=== PATIENT | female | born 1980 | race Two or more races ===

== ENCOUNTER → 2019-12-17 | Outpatient (CLI) | payer OTHER | END | disposition home or self-care (01) | LOC: PRENATAL 11:15 | DX: O26.21 Pregnancy care for patient with recurrent pregnancy loss, first trimester (principal); O36.80X1 Pregnancy with inconclusive fetal viability, fetus 1; O09.91 Supervision of high risk pregnancy, unspecified, first trimester; O09.811 Supervision of pregnancy resulting from assisted reproductive technology, first trimester; O09.521 Supervision of elderly multigravida, first trimester ==

== ENCOUNTER → 2020-02-07 | Outpatient (CLI) | payer OTHER | END | disposition home or self-care (01) | LOC: PRENATAL 08:30 | DX: O26.842 Uterine size-date discrepancy, second trimester (principal); O09.522 Supervision of elderly multigravida, second trimester; O09.812 Supervision of pregnancy resulting from assisted reproductive technology, second trimester; O09.512 Supervision of elderly primigravida, second trimester; O09.92 Supervision of high risk pregnancy, unspecified, second trimester; O26.22 Pregnancy care for patient with recurrent pregnancy loss, second trimester; Z36.89 Encounter for other specified antenatal screening ==

== ENCOUNTER → 2020-03-06 | Outpatient (CLI) | payer OTHER | END | disposition home or self-care (01) | LOC: PRENATAL 09:00 | PROVIDERS: ATTEND Obstetrics & Gynecology Maternal & Fetal Medicine | DX: O26.22 Pregnancy care for patient with recurrent pregnancy loss, second trimester (principal); O09.522 Supervision of elderly multigravida, second trimester; O09.812 Supervision of pregnancy resulting from assisted reproductive technology, second trimester; Z36.89 Encounter for other specified antenatal screening ==

== ENCOUNTER 2022-09-13 23:29 | Emergency (ER) | payer OTHER ==
[~2022-09-13] VITALS: Ht 167.6 cm; Wt 104.3 kg
== END 2022-09-14 04:33 | disposition home or self-care (01) ==
LOC: ER 23:29
DX: R20.2 Paresthesia of skin (principal); G35 Multiple sclerosis; Z88.0 Allergy status to penicillin; Z88.8 Allergy status to other drugs, medicaments and biological substances; Z20.822 Contact with and (suspected) exposure to COVID-19